=== PATIENT | female | born 1960 | race Two or more races ===

== ENCOUNTER 2024-07-28 12:15 | Day surgery (SDC) | payer BC, SELFPAY ==
[2024-07-27 14:36] VITALS: BMI 44.1
[2024-07-28] VITALS (14 sets, daily range): BP systolic 77–158; BP diastolic 42–100; PULSE 74–96; RESP 11–29; TEMP 36.3–36.5; O2SAT 94–100; BMI 43.4
[2024-07-28] MEDS: ONDANSETRON INJ 2 MG/ML INJ 2 ML 4 MG IV (13:30)
[2024-07-28] MEDS: DiphenhydrAMINE INJ 50 MG/ML VIAL 25 MG IV (13:30)
[2024-07-28] MEDS: fentaNYL CIT INJ 50 mCg/ML AMP 2ML (ASD USE ONLY) IV (13:41)
[2024-07-28] MEDS: MIDAZOLAM INJ 1 MG/ML VIAL 2 ML (ASD USE ONLY) 2 MG IV (13:45)
[2024-07-28] MEDS: MEPERIDINE INJ 25 MG/ML VIAL (ASD USE ONLY) IV (13:45)
--- NOTE | 2024-07-28 14:27 | SUR.PHASEII ---
1410 Pt remains very sleepy. Opens eyes to commands only. B/P 73/46. BP cuff repositioned B/P 77/42. Skin pink, warm and dry. New orders rec'd from Dr Mcneil. IV bolus hung. Will cont. to monitor closely. 1430 Pt remains drowsy, yet approp. Via [place] speaker-pt denies pain or N/V, very Relaxed. IV fluids cont. B/P 101/46
--- NOTE | 2024-07-28 15:14 | SUR.PHASEII ---
1450 Pt more awake and alert. Denies pain or N/V. IV fluids infused-B/P 105/50. Skin remains pink, warm and dry. Zita PO fluids. 1515 Pt assessment unchanged. No complaints. Amb with assist to bathroom. assisting with pt getting dressed-per pt's request. DC instructions given via [place] speaker. Both state understanding. Pt meets dc criteria-to home.
== END 2024-07-28 15:15 | disposition home or self-care (01) ==
PROVIDERS: PCP Nurse Practitioner Family; Referring Provider Specialist; Visit Provider Specialist
PROC: 0DBE8ZX Excision of Large Intestine, Via Natural or Artificial Opening Endoscopic, Diagnostic (ICD-10-PCS; CPT 45380; principal; 2024-07-28 12:45)
PROC: (CPT 43239; 2024-07-28 12:45)
DX: K63.89 Other specified diseases of intestine (principal); K64.9 Unspecified hemorrhoids; K57.31 Diverticulosis of large intestine without perforation or abscess with bleeding
CPT/HCPCS: 45378; A4649; J1200; J2175; J2250; J2405; J3010

== ENCOUNTER → 2025-03-06 | Outpatient (CLI) | payer BC, MEDICARE, SELFPAY ==
--- NOTE | 2025-03-06 14:45 | XR_ITS ---
Examination: Screening digital mammography, bilateral Computer aided detection 3-D breast Tomosynthesis, bilateral Date and time of exam: March 06, 2025 1431 hours Compared to mammograms dating to May 24, 2014 Indication: Screening Technique: Nonmagnified MLO, CC views of the breasts to been obtained, reconstructed from 3-D Tomosynthesis images. R2 computer aided detection program utilized for evaluation of suspicious masses and/or abnormal calcifications. 3-D Tomosynthesis images obtained. Findings: Scattered areas of fibroglandular density. Benign calcifications. No interval suspicious masses Impression: BI-RADS category II: Benign Findings. Recommend 1 year follow-up mammogram.
== END | disposition home or self-care (01) ==
LOC: CDIM 14:20
PROVIDERS: PCP Nurse Practitioner Family; Referring Provider Nurse Practitioner Family; Visit Provider Nurse Practitioner Family
DX: Z12.31 Encounter for screening mammogram for malignant neoplasm of breast (principal); R92.323 Mammographic fibroglandular density, bilateral breasts; R92.1 Mammographic calcification found on diagnostic imaging of breast
CPT/HCPCS: 77063; 77067